=== PATIENT | male | born 1995 | race Caucasian/White ===

== ENCOUNTER 2017-09-26 03:36 | Emergency (ER) | payer OTHER ==
[2017-09-26] MEDS ORDERED: DIPH,PERTUS(ACELL)TETVAC-LF 0.5 ML VIAL IM ONE (03:41)
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
[2017-09-26] MEDS ORDERED: LORazepam 2 MG/ML INJ IM STA (05:12)
[2017-09-26 10:24] VITALS: RESP 18
--- NOTE | 2017-09-26 10:51 | XR ---
EXAMINATION TYPE: XR shoulder complete LT , 3 VIEWS DATE OF EXAM ORDERED: 09/26/2017 HISTORY: Pain. COMPARISON: None. FINDINGS: No fracture, dislocation or other acute osseous lesion is seen. IMPRESSION: NO ACUTE OSSEOUS LESION.
[2017-09-26 11:34] VITALS: BP 133/79; PULSE 87; TEMP 97.9
[2017-09-26] MEDS ORDERED: LORazepam 1 MG TAB PO STA (11:56)
== END 2017-09-26 12:00 | disposition home or self-care (01) ==
LOC: EC 03:36
DX: F10.129 Alcohol abuse with intoxication, unspecified (principal); S05.12XA Contusion of eyeball and orbital tissues, left eye, initial encounter; S00.83XA Contusion of other part of head, initial encounter; F17.200 Nicotine dependence, unspecified, uncomplicated; Z53.20 Procedure and treatment not carried out because of patient's decision for unspecified reasons; Y09 Assault by unspecified means; Y93.89 Activity, other specified; Y92.89 Other specified places as the place of occurrence of the external cause
CPT/HCPCS: 73030; 72125; 70486; 70450; 99285; 96372; J2060